=== PATIENT | male | born 1935 | race Caucasian/White ===

== ENCOUNTER 2023-01-09 11:43 | Inpatient (IN) | payer MEDICARE, OTHER ==
[2023-01-09 13:06] LABS: BASOPHILS ABSOLUTE AUTO 0.01 K/mm3 (0.01-0.08); BASOPHILS PERCENT AUTO 0.2 % (0.1-1.2); EOSINOPHILS ABSOLUTE AUTO 0.19 K/mm3 (0.04-0.54); EOSINOPHILS PERCENT AUTO 3.5 (0.8-7.0); HEMOGLOBIN 13.6 gm/dl (13.7-17.5); IMMATURE GRAN ABSOLUTE AUTO 0.01 K/mm3 (0.00-0.10); IMMATURE GRAN PERCENT AUTO 0.2 % (<=1.0); LYMPHOCYTES ABSOLUTE AUTO 2.32 K/mm3 (1.32-3.57); LYMPHOCYTES PERCENT AUTO 43.2 % (21.8-53.1); MEAN CORPUSCULAR HEMOGLOBIN 31.3 pg (25.7-32.2); MEAN CORPUSCULAR HGB CONC 33.2 g/dl (32.2-35.5); MEAN CORPUSCULAR VOLUME 94.5 fl (79.0-92.2); MONOCYTES ABSOLUTE AUTO 0.26 K/mm3 (0.30-0.82); MONOCYTES PERCENT AUTO 4.8 % (5.3-12.2); NEUTROPHILS ABSOLUTE AUTO 2.58 K/mm3 (1.78-5.38); NEUTROPHILS PERCENT AUTO 48.1 % (34.0-67.9); PLATELET COUNT,PLT 67 K/mm3 (163-337); RED BLOOD CELL COUNT 4.34 M/mm3 (4.63-6.08); WHITE BLOOD CELL COUNT,WBC 5.37 K/mm3 (4.23-9.07)
[2023-01-09 13:24] LABS: INR 1.1; PROTHROMBIN TIME 11.7 SECONDS (9.7-12.0)
[2023-01-09 13:26] LABS: PTT,PARTIAL THROMBOPLSTIN TIME 27.1 SECONDS (21.7-31.4)
[2023-01-09 13:40] LABS: A/G RATIO 1.1 (1-2); ALBUMIN 3.8 g/dl (3.4-5.0); ANION GAP 17.9 (5-15); BILIRUBIN TOTAL 1.6 mg/dL (0.2-1.0); BUN/CREATININE RATIO 11.9 (14-18); CALCIUM 9.3 mg/dL (8.5-10.1); CREATININE 3.1 mg/dL (0.7-1.3); EST CRCL DRUG DOSING (CG) 17.88 mL/min; POTASSIUM,K 3.9 mEq/L (3.5-5.1); PROTEIN TOTAL,TP 7.2 g/dl (6.4-8.2)
[2023-01-09 13:58] LABS: SLIDE REVIEW ABNORMAL SMEAR
[2023-01-09] MEDS ORDERED: Lactated Ringers 1,000 ML IV ONE (14:32)
[2023-01-09 15:19] LABS: APPEARANCE,URINE CLEAR (Clear); BILIRUBIN,URINE NEGATIVE (Negative); COLOR,URINE DARK YELLOW (Yellow); GLUCOSE,URINE NEGATIVE (Negative); KETONES,URINE NEGATIVE (Negative); LEUKOCYTE ESTERASE,URINE TRACE (Negative); NITRITE,URINE NEGATIVE (Negative); OCCULT BLOOD,URINE TRACE-INTACT (Negative); PROTEIN,URINE 1+ (Negative)
[2023-01-09 15:32] LABS: AMORPHOUS SEDIMENT,URINE FEW /hpf (NOT SEEN); BACTERIA,URINE MODERATE /hpf (FEW); HYALINE CASTS,URINE 0-5 /lpf (0-5); MUCUS,URINE FEW /hpf (FEW); SQUAMOUS EPITHELIAL CELLS,UR 0-5 /hpf (0-5)
[2023-01-09 16:28] LABS: LACTIC ACID 1.2 mmol/L (0.4-2.0)
[2023-01-09] MEDS ORDERED: oxyCODONE 5 MG Tab PO PRN (16:42)
[2023-01-09] MEDS ORDERED: Acetaminophen 325 MG Tab PO PRN (16:42)
[2023-01-09] MEDS ORDERED: Temazepam 7.5 MG Cap PO PRN (16:42)
[2023-01-09] MEDS ORDERED: Lactated Ringers 1,000 ML IV SCH (16:45)
[2023-01-09] MEDS ORDERED: Heparin Sodium 5,000 Units/ML Vial SUBCUT SCH (16:45)
[2023-01-09] MEDS ORDERED: cefTRIAXone 1 GM in Sodium Chloride 0.9% 100 ML IV ONE (16:59)
[2023-01-09] MEDS: cefTRIAXone 1 GM in Sodium Chloride 0.9% 100 ML IV SCH ×2 (17:07→19:54)
[2023-01-09] MEDS: Rosuvastatin 10 MG Tab PO SCH (20:15)
[2023-01-09] MEDS: Metoprolol Succinate 50 MG Tab.ER PO SCH (20:19)
[2023-01-09] MEDS ORDERED: Sodium Chloride 0.9% 500 ML IV ONE (20:23)
[2023-01-09] MEDS ORDERED: VALSARTAN PO SCH (21:00)
[2023-01-09] MEDS ORDERED: SACUBITRIL PO SCH (21:00)
[2023-01-10 06:21] LABS: BASOPHILS ABSOLUTE AUTO 0.01 K/mm3 (0.01-0.08); BASOPHILS PERCENT AUTO 0.2 % (0.1-1.2); EOSINOPHILS ABSOLUTE AUTO 0.16 K/mm3 (0.04-0.54); EOSINOPHILS PERCENT AUTO 3.9 (0.8-7.0); HEMATOCRIT 35.1 % (40.1-51.0); IMMATURE GRAN ABSOLUTE AUTO 0.01 K/mm3 (0.00-0.10); IMMATURE GRAN PERCENT AUTO 0.2 % (<=1.0); LYMPHOCYTES ABSOLUTE AUTO 1.92 K/mm3 (1.32-3.57); LYMPHOCYTES PERCENT AUTO 46.5 % (21.8-53.1); MEAN CORPUSCULAR HEMOGLOBIN 31.4 pg (25.7-32.2); MEAN CORPUSCULAR VOLUME 94.9 fl (79.0-92.2); MEAN PLATELET VOLUME 10.7 fl (9.4-12.3); MONOCYTES ABSOLUTE AUTO 0.28 K/mm3 (0.30-0.82); MONOCYTES PERCENT AUTO 6.8 % (5.3-12.2); NEUTROPHILS ABSOLUTE AUTO 1.75 K/mm3 (1.78-5.38); NEUTROPHILS PERCENT AUTO 42.4 % (34.0-67.9); PLATELET COUNT,PLT 62 K/mm3 (163-337); WHITE BLOOD CELL COUNT,WBC 4.13 K/mm3 (4.23-9.07)
[2023-01-10 06:26] LABS: HEMOGLOBIN 11.6 gm/dl (13.7-17.5)
[2023-01-10 06:55] LABS: ALBUMIN 2.9 g/dl (3.4-5.0); BILIRUBIN TOTAL 1.2 mg/dL (0.2-1.0); CALCIUM 8.7 mg/dL (8.5-10.1); MAGNESIUM 1.5 mg/dL (1.8-2.4); POTASSIUM,K 3.3 mEq/L (3.5-5.1); PROTEIN TOTAL,TP 5.7 g/dl (6.4-8.2)
[2023-01-10 07:08] LABS: ANION GAP 15.3 (5-15); BUN/CREATININE RATIO 11.8 (14-18); CREATININE 2.8 mg/dL (0.7-1.3); EST CRCL DRUG DOSING (CG) 19.8 mL/min
[2023-01-10] MEDS: Aspirin 81 MG Tab.EC PO SCH (08:52)
[2023-01-10] MEDS: Furosemide 20 MG Tab PO SCH (08:52)
[2023-01-10] MEDS: Tamsulosin 0.4 MG Cap.ER PO SCH (08:53)
[2023-01-10] MEDS: Magnesium Oxide 400 MG Tab PO SCH ×2 (08:54→20:08)
[2023-01-10] MEDS ORDERED: Potassium Chloride 20 MEQ Tab.ER PO ONE (09:00)
[2023-01-10] MEDS ORDERED: Docusate Sodium 100 MG Cap PO ONE (09:36)
[2023-01-10] MEDS: Cyanocobalamin (Vitamin B12) 1,000 MCG Tab PO SCH (09:42)
[2023-01-10 10:42] LABS: SLIDE REVIEW ABNORMAL SMEAR
[2023-01-10] MEDS: cefTRIAXone 1 GM in Sodium Chloride 0.9% 100 ML IV SCH (17:06)
[2023-01-10] MEDS: Metoprolol Succinate 50 MG Tab.ER PO SCH (20:07)
[2023-01-10] MEDS: Trospium 20 MG Tab PO SCH (20:08)
[2023-01-10] MEDS: Rosuvastatin 10 MG Tab PO SCH (20:08)
[2023-01-11 07:05] LABS: EOSINOPHILS ABSOLUTE AUTO 0.16 K/mm3 (0.04-0.54); EOSINOPHILS PERCENT AUTO 3.7 (0.8-7.0); HEMATOCRIT 36.3 % (40.1-51.0); HEMOGLOBIN 12.2 gm/dl (13.7-17.5); IMMATURE GRAN ABSOLUTE AUTO 0.01 K/mm3 (0.00-0.10); IMMATURE GRAN PERCENT AUTO 0.2 % (<=1.0); LYMPHOCYTES ABSOLUTE AUTO 1.46 K/mm3 (1.32-3.57); LYMPHOCYTES PERCENT AUTO 33.6 % (21.8-53.1); MEAN CORPUSCULAR HEMOGLOBIN 31.6 pg (25.7-32.2); MEAN CORPUSCULAR HGB CONC 33.6 g/dl (32.2-35.5); MEAN PLATELET VOLUME 10.4 fl (9.4-12.3); MONOCYTES PERCENT AUTO 4.6 % (5.3-12.2); NEUTROPHILS ABSOLUTE AUTO 2.52 K/mm3 (1.78-5.38); NEUTROPHILS PERCENT AUTO 57.9 % (34.0-67.9); PLATELET COUNT,PLT 65 K/mm3 (163-337); RED BLOOD CELL COUNT 3.86 M/mm3 (4.63-6.08); WHITE BLOOD CELL COUNT,WBC 4.35 K/mm3 (4.23-9.07)
[2023-01-11 07:07] LABS: ALBUMIN 3.1 g/dl (3.4-5.0); ANION GAP 13.3 (5-15); BILIRUBIN TOTAL 1.2 mg/dL (0.2-1.0); BUN/CREATININE RATIO 10.4 (14-18); CALCIUM 9.2 mg/dL (8.5-10.1); CREATININE 2.5 mg/dL (0.7-1.3); EST CRCL DRUG DOSING (CG) 22.17 mL/min; MAGNESIUM 1.6 mg/dL (1.8-2.4); POTASSIUM,K 3.3 mEq/L (3.5-5.1); PROTEIN TOTAL,TP 6.1 g/dl (6.4-8.2)
[2023-01-11] MEDS: Tamsulosin 0.4 MG Cap.ER PO SCH (08:44)
[2023-01-11] MEDS: Cyanocobalamin (Vitamin B12) 1,000 MCG Tab PO SCH (08:44)
[2023-01-11] MEDS: Aspirin 81 MG Tab.EC PO SCH (08:44)
[2023-01-11] MEDS: Magnesium Oxide 400 MG Tab PO SCH ×2 (08:44→20:17)
[2023-01-11] MEDS: Furosemide 20 MG Tab PO SCH (08:45)
[2023-01-11] MEDS ORDERED: Folic Acid 1 MG Tab PO SCH (09:00)
[2023-01-11] MEDS ORDERED: Methotrexate 2.5 MG Tab PO SCH ×2 (09:00)
[2023-01-11] MEDS ORDERED: Potassium Chloride 20 MEQ Tab.ER PO ONE (09:16)
[2023-01-11] MEDS ORDERED: LORazepam 0.5 MG Tab PO ONE (12:00)
[2023-01-11 12:19] LABS: SLIDE REVIEW ABNORMAL SMEAR
[2023-01-11] MEDS: Rosuvastatin 10 MG Tab PO SCH (20:17)
[2023-01-11] MEDS: Metoprolol Succinate 50 MG Tab.ER PO SCH (20:17)
[2023-01-11] MEDS: Trospium 20 MG Tab PO SCH (20:18)
[2023-01-11] MEDS ORDERED: Melatonin 3 MG Tab PO SCH (21:00)
[2023-01-12 05:53] LABS: BASOPHILS ABSOLUTE AUTO 0.01 K/mm3 (0.01-0.08); BASOPHILS PERCENT AUTO 0.2 % (0.1-1.2); EOSINOPHILS PERCENT AUTO 4.9 (0.8-7.0); HEMATOCRIT 33.5 % (40.1-51.0); HEMOGLOBIN 11.1 gm/dl (13.7-17.5); LYMPHOCYTES ABSOLUTE AUTO 1.53 K/mm3 (1.32-3.57); LYMPHOCYTES PERCENT AUTO 37.6 % (21.8-53.1); MEAN CORPUSCULAR HEMOGLOBIN 31.7 pg (25.7-32.2); MEAN CORPUSCULAR HGB CONC 33.1 g/dl (32.2-35.5); MEAN CORPUSCULAR VOLUME 95.7 fl (79.0-92.2); MEAN PLATELET VOLUME 10.4 fl (9.4-12.3); MONOCYTES ABSOLUTE AUTO 0.28 K/mm3 (0.30-0.82); MONOCYTES PERCENT AUTO 6.9 % (5.3-12.2); NEUTROPHILS ABSOLUTE AUTO 2.05 K/mm3 (1.78-5.38); NEUTROPHILS PERCENT AUTO 50.4 % (34.0-67.9); PLATELET COUNT,PLT 56 K/mm3 (163-337); WHITE BLOOD CELL COUNT,WBC 4.07 K/mm3 (4.23-9.07)
[2023-01-12 06:04] LABS: ALBUMIN 2.8 g/dl (3.4-5.0); ANION GAP 12.5 (5-15); BILIRUBIN TOTAL 0.9 mg/dL (0.2-1.0); BUN/CREATININE RATIO 9.6 (14-18); CALCIUM 8.7 mg/dL (8.5-10.1); CREATININE 2.4 mg/dL (0.7-1.3); EST CRCL DRUG DOSING (CG) 23.1 mL/min; POTASSIUM,K 3.5 mEq/L (3.5-5.1); PROTEIN TOTAL,TP 5.6 g/dl (6.4-8.2)
[2023-01-12 08:26] LABS: SLIDE REVIEW ABNORMAL SMEAR
[2023-01-12] MEDS: Furosemide 20 MG Tab PO SCH (08:57)
[2023-01-12] MEDS: Cyanocobalamin (Vitamin B12) 1,000 MCG Tab PO SCH (08:57)
[2023-01-12] MEDS: Tamsulosin 0.4 MG Cap.ER PO SCH (08:57)
[2023-01-12] MEDS: Aspirin 81 MG Tab.EC PO SCH (08:57)
[2023-01-12] MEDS: Magnesium Oxide 400 MG Tab PO SCH (08:57)
[2023-01-12] MEDS ORDERED: Magnesium Hydroxide 400 MG/5 ML Susp 30 ML Cup PO ONE (09:49)
== END 2023-01-12 16:00 | disposition home or self-care (01) | DRG 641 ==
LOC: SUPCPDRO 11:43 → JD.ED 11:43 → JD.MS 16:42
PROVIDERS: ADMIT Internal Medicine; ATTEND Internal Medicine
DX: N39.0 Urinary tract infection, site not specified (principal); E86.0 Dehydration; R29.6 Repeated falls; N18.4 Chronic kidney disease, stage 4 (severe); I13.0 Hypertensive heart and chronic kidney disease with heart failure and stage 1 through stage 4 chronic kidney disease, or unspecified chronic kidney disease; I50.9 Heart failure, unspecified; D69.6 Thrombocytopenia, unspecified; R31.9 Hematuria, unspecified; E87.6 Hypokalemia; Z66 Do not resuscitate; H54.7 Unspecified visual loss; K59.09 Other constipation; N40.0 Benign prostatic hyperplasia without lower urinary tract symptoms; F32.A Depression, unspecified; Z98.890 Other specified postprocedural states; Z79.899 Other long term (current) drug therapy; Z95.0 Presence of cardiac pacemaker; Z90.89 Acquired absence of other organs; Z98.49 Cataract extraction status, unspecified eye; Z79.82 Long term (current) use of aspirin
CPT/HCPCS: 36415; 70450; 71045; 80053; 81001; 82947; 83605; 83880; 84443; 84484; 85025; 85610; 85730; 87040 ×2; 87086; 93005; J7120; 51798; 83735; 93010; 96360; 97116-GP; 97162-GP; 97166-GO; 99222; 99232; 99239; 99285; 99285-25; A9270-GY; J0696; J3490; J7030; J8610

== ENCOUNTER 2023-07-05 13:03 | Inpatient (IN) | payer MEDICARE, OTHER ==
[2023-07-05] MEDS ORDERED: Lactated Ringers 1,000 ML IV SCH ×4 (14:00→22:00)
[2023-07-05 14:39] LABS: BASOPHILS PERCENT AUTO 0.1 % (0.0-1.0); EOSINOPHILS PERCENT AUTO 0.3 % (0.0-6.0); HEMATOCRIT 38.8 % (42.0-52.0); IMMATURE GRAN ABSOLUTE AUTO 0.03 K/mm3 (0.00-0.05); IMMATURE GRAN PERCENT AUTO 0.3 % (0.0-0.4); LYMPHOCYTES ABSOLUTE AUTO 2.8 K/mm3 (1.0-4.8); LYMPHOCYTES PERCENT AUTO 29.4 % (24.0-44.0); MEAN CORPUSCULAR HEMOGLOBIN 32.4 pg (28.0-32.0); MEAN CORPUSCULAR VOLUME 98.2 fl (83.0-99.0); MEAN PLATELET VOLUME 9.6 fl (9.4-12.4); MONOCYTES ABSOLUTE AUTO 0.4 K/mm3 (0.0-0.8); MONOCYTES PERCENT AUTO 4.1 % (0.0-8.0); NEUTROPHILS ABSOLUTE AUTO 6.2 K/mm3 (1.8-7.7); NEUTROPHILS PERCENT AUTO 65.8 % (41.0-71.0); PLATELET COUNT,PLT 132 K/mm3 (150-400); RED BLOOD CELL COUNT 3.95 M/mm3 (4.52-5.90); WHITE BLOOD CELL COUNT,WBC 9.48 K/mm3 (3.9-11.3)
[2023-07-05 14:43] LABS: HEMOGLOBIN 12.8 gm/dl (14.0-18.0)
[2023-07-05 14:58] LABS: INR 1.08; PROTHROMBIN TIME 11.5 SECONDS (9.7-12.0)
[2023-07-05 14:59] LABS: PTT,PARTIAL THROMBOPLSTIN TIME 25.8 SECONDS (21.7-31.4)
[2023-07-05 15:10] LABS: A/G RATIO 0.8 (1-2); ALANINE AMINOTRANSFERASE,ALT 14 U/L (16-63); ALBUMIN 3.8 g/dl (3.4-5.0); ALKALINE PHOSPHATASE 84 U/L (46-116); ANION GAP 19.9 (5-15); ASPARTATE AMNIOTRANSFERASE,AST 17 U/L (15-37); BILIRUBIN TOTAL 0.6 mg/dL (0.2-1.0); BLOOD UREA NITROGEN,BUN 46 mg/dL (7-18); BUN/CREATININE RATIO 15.3 (14-18); C-REACTIVE PROTEIN <0.2 mg/dL (<1.0); CALCIUM 10.1 mg/dL (8.5-10.1); CARBON DIOXIDE,CO2 21 mEq/L (21-32); CHLORIDE,CL 101 mEq/L (98-107); EST CRCL DRUG DOSING (CG) 18.13 mL/min; ESTIMATED GFR 19 mL/min (>60); GLUCOSE RANDOM 121 mg/dL (70-99); POTASSIUM,K 3.9 mEq/L (3.5-5.1); PROTEIN TOTAL,TP 8.6 g/dl (6.4-8.2); SODIUM,NA 138 mEq/L (136-145); TROPONIN I HIGH SENSITIVITY 42 pg/mL (<=76)
[2023-07-05 15:24] LABS: CORONAVIRUS COVID-19 NAA NEGATIVE (NEGATIVE); INFLUENZA A NAA NEGATIVE (NEGATIVE); RESPIRATORY SYNCYTIAL VIR NAA NEGATIVE (NEGATIVE)
[2023-07-05 15:53] LABS: LACTIC ACID 2.5 mmol/L (0.4-2.0)
[2023-07-05 16:50] LABS: APPEARANCE,URINE CLEAR (Clear); BILIRUBIN,URINE NEGATIVE (Negative); COLOR,URINE YELLOW (Yellow); GLUCOSE,URINE TRACE (Negative); KETONES,URINE NEGATIVE (Negative); LEUKOCYTE ESTERASE,URINE 1+ (Negative); NITRITE,URINE NEGATIVE (Negative); OCCULT BLOOD,URINE 1+ (Negative); PROTEIN,URINE NEGATIVE (Negative); UROBILINOGEN,URINE 0.2 (0.2-1.0)
[2023-07-05 16:57] LABS: BACTERIA,URINE FEW /hpf (FEW); MUCUS,URINE FEW /hpf (FEW); RBC,URINE 0-5 /hpf (0-5); SQUAMOUS EPITHELIAL CELLS,UR 0-5 /hpf (0-5); WBC,URINE 0-5 /hpf (0-5)
[2023-07-06] MEDS: Acetaminophen 325 MG Tab PO PRN ×2 (04:24→20:02)
[2023-07-06 06:43] LABS: ANION GAP 13.5 (5-15); BUN/CREATININE RATIO 18.2 (14-18); CALCIUM 9.2 mg/dL (8.5-10.1); CREATININE 2.2 mg/dL (0.7-1.3); EST CRCL DRUG DOSING (CG) 24.72 mL/min; POTASSIUM,K 3.5 mEq/L (3.5-5.1)
[2023-07-06] MEDS: Heparin Sodium 5,000 Units/ML Vial SUBCUT SCH ×3 (07:04→22:15)
[2023-07-06] MEDS ORDERED: Rosuvastatin 10 MG Tab PO SCH ×2 (21:00)
[2023-07-06] MEDS ORDERED: Tamsulosin 0.4 MG Cap.ER PO SCH (21:00)
[2023-07-06] MEDS ORDERED: Trospium 20 MG Tab PO SCH (21:00)
[2023-07-07 06:46] LABS: ANION GAP 11.7 (5-15); BUN/CREATININE RATIO 17.9 (14-18); CALCIUM 9.2 mg/dL (8.5-10.1); CREATININE 1.9 mg/dL (0.7-1.3); EST CRCL DRUG DOSING (CG) 28.62 mL/min; POTASSIUM,K 3.7 mEq/L (3.5-5.1)
[2023-07-07] MEDS: Heparin Sodium 5,000 Units/ML Vial SUBCUT SCH (06:52)
[2023-07-07] MEDS ORDERED: SULFASALAZINE 500 MG PO SCH (09:00)
[2023-07-07] MEDS ORDERED: Furosemide 40 MG Tab PO SCH (09:00)
[2023-07-07] MEDS ORDERED: Metoprolol Succinate 50 MG Tab.ER PO SCH (09:00)
[2023-07-07] MEDS ORDERED: Aspirin 81 MG Tab.EC PO SCH (09:00)
[2023-07-07] MEDS ORDERED: Tamsulosin 0.4 MG Cap.ER PO SCH (09:00)
[2023-07-07] MEDS ORDERED: Magnesium Oxide 400 MG Tab PO SCH (09:00)
[2023-07-07] MEDS ORDERED: FLU (Fluad Quad) 2023-24(65UP)/MF59C/PF 60 MCG/0.5 ML Syringe IM ONE (11:55)
[2023-07-12] MEDS ORDERED: Methotrexate 2.5 MG Tab PO SCH (09:00)
== END 2023-07-07 13:15 | disposition home or self-care (01) | DRG 394 ==
LOC: JD.ED 13:03 → JD.MS 19:40
PROVIDERS: ADMIT Internal Medicine; ATTEND Internal Medicine
DX: K52.1 Toxic gastroenteritis and colitis (principal); E87.20 Acidosis, unspecified; I13.0 Hypertensive heart and chronic kidney disease with heart failure and stage 1 through stage 4 chronic kidney disease, or unspecified chronic kidney disease; N17.9 Acute kidney failure, unspecified; N18.4 Chronic kidney disease, stage 4 (severe); R64 Cachexia; Z66 Do not resuscitate; I25.10 Atherosclerotic heart disease of native coronary artery without angina pectoris; E78.5 Hyperlipidemia, unspecified; I50.9 Heart failure, unspecified; I48.91 Unspecified atrial fibrillation; E86.1 Hypovolemia; T36.95XA Adverse effect of unspecified systemic antibiotic, initial encounter; M05.79 Rheumatoid arthritis with rheumatoid factor of multiple sites without organ or systems involvement; H91.90 Unspecified hearing loss, unspecified ear; K59.09 Other constipation; E86.0 Dehydration; G89.29 Other chronic pain; M54.9 Dorsalgia, unspecified; F32.A Depression, unspecified; N40.0 Benign prostatic hyperplasia without lower urinary tract symptoms; Z95.0 Presence of cardiac pacemaker; Z79.82 Long term (current) use of aspirin; Z79.899 Other long term (current) drug therapy; Z98.890 Other specified postprocedural states; Z98.49 Cataract extraction status, unspecified eye; Z11.52 Encounter for screening for COVID-19; Z68.23 Body mass index [BMI] 23.0-23.9, adult
CPT/HCPCS: 0241U; 36415; 70450; 70450-26; 71045; 71045-26; 73030-26-RT; 73030-RT; 80048; 80053; 81001; 83605; 83880; 84484; 85025; 85610; 85652; 85730; 86140; 87040; 90694; 93005; 97161-GP; A9270-GY; G0008; J1644; J7120

== ENCOUNTER 2024-05-14 10:50 | Inpatient (IN) | payer MEDICARE, OTHER ==
[2024-05-14 11:58] LABS: BASOPHILS PERCENT AUTO 0.2 % (0.0-1.0); EOSINOPHILS PERCENT AUTO 0.1 % (0.0-6.0); HEMATOCRIT 40.8 % (42.0-52.0); HEMOGLOBIN 13.4 gm/dl (14.0-18.0); IMMATURE GRAN ABSOLUTE AUTO 0.03 K/mm3 (0.00-0.05); IMMATURE GRAN PERCENT AUTO 0.2 % (0.0-0.4); LYMPHOCYTES ABSOLUTE AUTO 3.9 K/mm3 (1.0-4.8); LYMPHOCYTES PERCENT AUTO 30.6 % (24.0-44.0); MEAN CORPUSCULAR HEMOGLOBIN 32.1 pg (28.0-32.0); MEAN CORPUSCULAR HGB CONC 32.8 g/dl (32.0-36.0); MEAN CORPUSCULAR VOLUME 97.6 fl (83.0-99.0); MEAN PLATELET VOLUME 10.4 fl (9.4-12.4); MONOCYTES ABSOLUTE AUTO 0.7 K/mm3 (0.0-0.8); MONOCYTES PERCENT AUTO 5.5 % (0.0-8.0); NEUTROPHILS ABSOLUTE AUTO 8.1 K/mm3 (1.8-7.7); NEUTROPHILS PERCENT AUTO 63.4 % (41.0-71.0); PLATELET COUNT,PLT 115 K/mm3 (150-400); RED BLOOD CELL COUNT 4.18 M/mm3 (4.52-5.90); WHITE BLOOD CELL COUNT,WBC 12.79 K/mm3 (3.9-11.3)
[2024-05-14] MEDS: Sodium Chloride 0.9% 1,000 ML IV SCH (12:11)
[2024-05-14 12:27] LABS: LACTIC ACID 2.1 mmol/L (0.4-2.0)
[2024-05-14 12:34] LABS: A/G RATIO 0.8 (1-2); ANION GAP 16.2 (5-15); BILIRUBIN TOTAL 0.7 mg/dL (0.2-1.0); BUN/CREATININE RATIO 15.7 (14-18); C-REACTIVE PROTEIN 8.99 mg/dL (<0.30); CALCIUM 9.4 mg/dL (8.5-10.1); CREATININE 2.1 mg/dL (0.7-1.3); EST CRCL DRUG DOSING (CG) 25.9 mL/min; MAGNESIUM 1.9 mg/dL (1.8-2.4); POTASSIUM,K 3.2 mEq/L (3.5-5.1); PROTEIN TOTAL,TP 6.9 g/dl (6.4-8.2)
[2024-05-14 13:00] LABS: CORONAVIRUS COVID-19 NAA NEGATIVE (NEGATIVE); INFLUENZA A NAA NEGATIVE (NEGATIVE); RESPIRATORY SYNCYTIAL VIR NAA NEGATIVE (NEGATIVE)
[2024-05-14 13:26] LABS: APPEARANCE,URINE SLT CLOUDY (Clear); BILIRUBIN,URINE 1+ (Negative); COLOR,URINE DARK YELLOW (Yellow); GLUCOSE,URINE NEGATIVE (Negative); KETONES,URINE NEGATIVE (Negative); LEUKOCYTE ESTERASE,URINE 1+ (Negative); NITRITE,URINE NEGATIVE (Negative); OCCULT BLOOD,URINE 2+ (Negative); PH,URINE 5.5 (5.0-8.0); PROTEIN,URINE 2+ (Negative); UROBILINOGEN,URINE 0.2 (0.2-1.0)
[2024-05-14] MEDS: Potassium Chloride 10 MEQ in Premix Bag 1 BAG IV SCH (13:37)
[2024-05-14 13:43] LABS: BACTERIA,URINE MODERATE /hpf (FEW); MUCUS,URINE MODERATE /hpf (FEW); RBC,URINE 20-30 /hpf (0-5)
[2024-05-14] MEDS: cefTRIAXone 2 GM in Sodium Chloride 0.9% 100 ML IV ONE (14:25)
[2024-05-14] MEDS ORDERED: Sennosides/Docusate Sodium 50-8.6 MG Tab PO PRN (14:42)
[2024-05-14] MEDS ORDERED: Melatonin 3 MG Tab PO PRN (14:42)
[2024-05-14] MEDS ORDERED: Ondansetron 4 MG/2 ML SDV IV PRN (14:42)
[2024-05-14] MEDS ORDERED: oxyCODONE 5 MG Tab PO PRN (14:42)
[2024-05-14] MEDS ORDERED: Sodium Chloride 0.9% 10 ML Syringe FLUSH PRN (15:03)
[2024-05-14] MEDS ORDERED: Glucagon,Human Recombinant 1 MG Vial IM PRN (15:18)
[2024-05-14] MEDS: Iopamidol 612 MG/ML 100 ML Bottle IVPUSH ONE (15:23)
[2024-05-14] MEDS: Lactated Ringers 1,000 ML IV SCH (16:29)
[2024-05-14] MEDS: Potassium Chloride 20 MEQ Tab.ER PO ONE (16:30)
[2024-05-14] MEDS: Insulin Lispro 100 Unit/ML 3 ML KwikPen SUBCUT SCH (16:33)
[2024-05-14] MEDS: Lactated Ringers 500 ML IV ONE (19:05)
[2024-05-14] MEDS: Rosuvastatin 10 MG Tab PO SCH (20:01)
[2024-05-14] MEDS: Tamsulosin 0.4 MG Cap.ER PO SCH (20:02)
[2024-05-14] MEDS: Trospium 20 MG Tab PO SCH (20:02)
[2024-05-14] MEDS: Loperamide 2 MG Cap PO PRN (22:23)
[2024-05-15 06:47] LABS: BASOPHILS PERCENT AUTO 0.1 % (0.0-1.0); EOSINOPHILS ABSOLUTE AUTO 0.1 K/mm3 (0.0-0.4); EOSINOPHILS PERCENT AUTO 1.4 % (0.0-6.0); HEMATOCRIT 35.7 % (42.0-52.0); IMMATURE GRAN ABSOLUTE AUTO 0.02 K/mm3 (0.00-0.05); IMMATURE GRAN PERCENT AUTO 0.3 % (0.0-0.4); LYMPHOCYTES ABSOLUTE AUTO 3.4 K/mm3 (1.0-4.8); LYMPHOCYTES PERCENT AUTO 43.5 % (24.0-44.0); MEAN CORPUSCULAR HEMOGLOBIN 32.8 pg (28.0-32.0); MEAN CORPUSCULAR HGB CONC 33.3 g/dl (32.0-36.0); MEAN CORPUSCULAR VOLUME 98.3 fl (83.0-99.0); MEAN PLATELET VOLUME 9.9 fl (9.4-12.4); MONOCYTES ABSOLUTE AUTO 0.4 K/mm3 (0.0-0.8); MONOCYTES PERCENT AUTO 5.1 % (0.0-8.0); NEUTROPHILS ABSOLUTE AUTO 3.9 K/mm3 (1.8-7.7); NEUTROPHILS PERCENT AUTO 49.6 % (41.0-71.0); PLATELET COUNT,PLT 103 K/mm3 (150-400); RED BLOOD CELL COUNT 3.63 M/mm3 (4.52-5.90); WHITE BLOOD CELL COUNT,WBC 7.82 K/mm3 (3.9-11.3)
[2024-05-15 06:53] LABS: HEMOGLOBIN 11.9 gm/dl (14.0-18.0)
[2024-05-15 07:33] LABS: HEMOGLOBIN A1C 5.7 %
[2024-05-15 07:34] LABS: A/G RATIO 0.7 (1-2); ALANINE AMINOTRANSFERASE,ALT < 6 U/L (16-63); ALBUMIN 2.5 g/dl (3.4-5.0); ALKALINE PHOSPHATASE 58 U/L (46-116); ANION GAP 14.5 (5-15); ASPARTATE AMNIOTRANSFERASE,AST 15 U/L (15-37); BILIRUBIN TOTAL 0.4 mg/dL (0.2-1.0); BLOOD UREA NITROGEN,BUN 29 mg/dL (7-18); BUN/CREATININE RATIO 17.1 (14-18); C-REACTIVE PROTEIN 6.42 mg/dL (<0.30); CALCIUM 8.9 mg/dL (8.5-10.1); CARBON DIOXIDE,CO2 22 mEq/L (21-32); CHLORIDE,CL 108 mEq/L (98-107); CREATININE 1.7 mg/dL (0.7-1.3); EST CRCL DRUG DOSING (CG) 31.99 mL/min; ESTIMATED GFR 38 mL/min (>60); GLUCOSE RANDOM 89 mg/dL (70-99); PHOSPHORUS 2.4 mg/dL (2.6-4.7); POTASSIUM,K 3.5 mEq/L (3.5-5.1); PROTEIN TOTAL,TP 5.9 g/dl (6.4-8.2); SODIUM,NA 141 mEq/L (136-145)
[2024-05-15] MEDS ORDERED: Enoxaparin 30 MG/0.3 ML Syringe SUBCUT SCH (09:00)
[2024-05-15] MEDS: Cholecalciferol (Vitamin D3) 25 MCG Tab PO SCH (09:07)
[2024-05-15] MEDS: Aspirin 81 MG Tab.EC PO SCH (09:07)
[2024-05-15] MEDS: Enoxaparin 40 MG/0.4 ML Syringe SUBCUT SCH (09:07)
[2024-05-15] MEDS: Trospium 20 MG Tab PO SCH (09:07)
[2024-05-15] MEDS: Metoprolol Succinate 25 MG Tab.ER PO SCH (09:08)
[2024-05-15] MEDS: Cyanocobalamin (Vitamin B12) 1,000 MCG Tab PO SCH (09:08)
[2024-05-15] MEDS: Phosphorus #1 250 MG Tab PO ONE (11:07)
[2024-05-15] MEDS: Potassium Chloride 20 MEQ Tab.ER PO ONE (11:08)
[2024-05-15] MEDS: cefTRIAXone 2 GM in Sodium Chloride 0.9% 100 ML IV SCH (15:00)
[2024-05-15] MEDS: Folic Acid 1 MG Tab PO SCH (16:22)
[2024-05-15] MEDS: Lactated Ringers 500 ML IV ONE (18:03)
[2024-05-15] MEDS: Polyethylene Glycol/Electrolytes 4,000 ML Bottle PO ONE (18:27)
[2024-05-16 04:44] LABS: HEMATOCRIT 35.2 % (42.0-52.0); HEMOGLOBIN 11.7 gm/dl (14.0-18.0); MEAN CORPUSCULAR HEMOGLOBIN 31.9 pg (28.0-32.0); MEAN CORPUSCULAR HGB CONC 33.2 g/dl (32.0-36.0); MEAN CORPUSCULAR VOLUME 95.9 fl (83.0-99.0); MEAN PLATELET VOLUME 10.1 fl (9.4-12.4); PLATELET COUNT,PLT 92 K/mm3 (150-400); RED BLOOD CELL COUNT 3.67 M/mm3 (4.52-5.90); WHITE BLOOD CELL COUNT,WBC 6.94 K/mm3 (3.9-11.3)
[2024-05-16 06:45] LABS: ANION GAP 12.9 (5-15); BUN/CREATININE RATIO 16.4 (14-18); CALCIUM 8.5 mg/dL (8.5-10.1); CREATININE 1.4 mg/dL (0.7-1.3); EST CRCL DRUG DOSING (CG) 38.85 mL/min; MAGNESIUM 1.8 mg/dL (1.8-2.4); PHOSPHORUS 2.4 mg/dL (2.6-4.7); POTASSIUM,K 3.9 mEq/L (3.5-5.1)
[2024-05-16] MEDS: Magnesium Sulfate/Water Premix 2 GM/50 ML BAG IV ONE (08:03)
[2024-05-16] MEDS: Mineral Oil 30 ML UD Cup PO ONE (08:07)
[2024-05-16] MEDS: Potassium Phosphates 30 MMOLE in Sodium Chloride 0.9% 500 ML IV SCH (10:24)
[2024-05-17 06:17] LABS: HEMATOCRIT 35.1 % (42.0-52.0); HEMOGLOBIN 11.8 gm/dl (14.0-18.0); MEAN CORPUSCULAR HEMOGLOBIN 32.4 pg (28.0-32.0); MEAN CORPUSCULAR HGB CONC 33.6 g/dl (32.0-36.0); MEAN CORPUSCULAR VOLUME 96.4 fl (83.0-99.0); MEAN PLATELET VOLUME 9.5 fl (9.4-12.4); PLATELET COUNT,PLT 100 K/mm3 (150-400); RED BLOOD CELL COUNT 3.64 M/mm3 (4.52-5.90); WHITE BLOOD CELL COUNT,WBC 6.49 K/mm3 (3.9-11.3)
[2024-05-17 06:36] LABS: ANION GAP 13.1 (5-15); BUN/CREATININE RATIO 12.5 (14-18); CALCIUM 8.4 mg/dL (8.5-10.1); CREATININE 1.2 mg/dL (0.7-1.3); EST CRCL DRUG DOSING (CG) 45.32 mL/min; PHOSPHORUS 2.9 mg/dL (2.6-4.7); POTASSIUM,K 4.1 mEq/L (3.5-5.1)
[2024-05-17] MEDS: Phosphorus #1 250 MG Tab PO ONE (11:02)
[2024-05-17] MEDS ORDERED: Mineral Oil 30 ML UD Cup PO ONE (14:49)
[2024-05-17] MEDS: Lactulose Soln 10 GM/15 ML 30 ML UD Cup PO SCH (16:05)
[2024-05-18] MEDS: Acetaminophen 325 MG Tab PO PRN (05:41)
[2024-05-18 06:00] LABS: ANION GAP 11.3 (5-15); BUN/CREATININE RATIO 9.1 (14-18); CALCIUM 8.1 mg/dL (8.5-10.1); CREATININE 1.1 mg/dL (0.7-1.3); EST CRCL DRUG DOSING (CG) 49.44 mL/min; PHOSPHORUS 2.9 mg/dL (2.6-4.7); POTASSIUM,K 4.3 mEq/L (3.5-5.1)
[2024-05-18] MEDS: Phosphorus #1 250 MG Tab PO ONE (10:17)
== END 2024-05-20 12:48 | DRG 698 ==
LOC: JD.ED 10:50 → JD.MS 14:42
PROVIDERS: ADMIT Student in an Organized Health Care Education/Training Program; ATTEND Student in an Organized Health Care Education/Training Program
DX: T83.510A Infection and inflammatory reaction due to cystostomy catheter, initial encounter (principal); A41.9 Sepsis, unspecified organism; G93.41 Metabolic encephalopathy; R19.7 Diarrhea, unspecified; R65.20 Severe sepsis without septic shock; I13.0 Hypertensive heart and chronic kidney disease with heart failure and stage 1 through stage 4 chronic kidney disease, or unspecified chronic kidney disease; I12.9 Hypertensive chronic kidney disease with stage 1 through stage 4 chronic kidney disease, or unspecified chronic kidney disease; N17.9 Acute kidney failure, unspecified; N39.0 Urinary tract infection, site not specified; Z79.2 Long term (current) use of antibiotics; Z66 Do not resuscitate; K52.9 Noninfective gastroenteritis and colitis, unspecified; E86.0 Dehydration; I25.10 Atherosclerotic heart disease of native coronary artery without angina pectoris; E11.9 Type 2 diabetes mellitus without complications; M06.9 Rheumatoid arthritis, unspecified; H91.90 Unspecified hearing loss, unspecified ear; H54.7 Unspecified visual loss; I50.9 Heart failure, unspecified; N18.9 Chronic kidney disease, unspecified; G89.29 Other chronic pain; M54.9 Dorsalgia, unspecified; F32.A Depression, unspecified; N40.0 Benign prostatic hyperplasia without lower urinary tract symptoms; K59.09 Other constipation; E87.6 Hypokalemia; N31.9 Neuromuscular dysfunction of bladder, unspecified; E83.39 Other disorders of phosphorus metabolism; Z95.5 Presence of coronary angioplasty implant and graft; Z95.0 Presence of cardiac pacemaker; Z79.82 Long term (current) use of aspirin; Z98.49 Cataract extraction status, unspecified eye; Z90.49 Acquired absence of other specified parts of digestive tract; Z98.890 Other specified postprocedural states; Z79.899 Other long term (current) drug therapy; Y73.8 Miscellaneous gastroenterology and urology devices associated with adverse incidents, not elsewhere classified
CPT/HCPCS: 0241U; 36415; 51702; 71045; 74019; 74177; 80048; 80053; 81001; 82947; 83036; 83605; 83735; 83880; 84100; 85025; 85027; 86140; 87040; 87045; 87046; 87086; 87328; 87329; 87493; 87899; 94760; 94761; 96361; 96365; 96368; 97110; 97116; 97161; 97530; 99285; 99223; 99232; 99233; 99239; A9270-GY; J0696; J1650; J3475; J3480; J3490; J7030; J7040; J7120; Q9967; U0002

== ENCOUNTER 2024-07-05 11:09 | Inpatient (IN) | payer MEDICARE, OTHER ==
[2024-07-05] MEDS ORDERED: Sodium Chloride 0.9% 10 ML Syringe FLUSH PRN (11:50)
[2024-07-05] MEDS: Sodium Chloride 0.9% 1,000 ML IV STA (12:18)
[2024-07-05 14:07] LABS: EOSINOPHILS PERCENT AUTO 0.7 % (0.0-6.0); HEMATOCRIT 37.5 % (42.0-52.0); HEMOGLOBIN 12.3 gm/dl (14.0-18.0); IMMATURE GRAN ABSOLUTE AUTO 0.02 K/mm3 (0.00-0.05); IMMATURE GRAN PERCENT AUTO 0.5 % (0.0-0.4); LYMPHOCYTES ABSOLUTE AUTO 2.3 K/mm3 (1.0-4.8); MEAN CORPUSCULAR HEMOGLOBIN 31.6 pg (28.0-32.0); MEAN CORPUSCULAR HGB CONC 32.8 g/dl (32.0-36.0); MEAN CORPUSCULAR VOLUME 96.4 fl (83.0-99.0); MONOCYTES ABSOLUTE AUTO 0.1 K/mm3 (0.0-0.8); NEUTROPHILS ABSOLUTE AUTO 1.7 K/mm3 (1.8-7.7); NEUTROPHILS PERCENT AUTO 41.8 % (41.0-71.0); PLATELET COUNT,PLT 45 K/mm3 (150-400); RED BLOOD CELL COUNT 3.89 M/mm3 (4.52-5.90); WHITE BLOOD CELL COUNT,WBC 4.09 K/mm3 (3.9-11.3)
[2024-07-05 14:30] LABS: A/G RATIO 0.7 (1-2); ANION GAP 12.6 (5-15); BUN/CREATININE RATIO 25.3 (14-18); C-REACTIVE PROTEIN 11.66 mg/dL (<0.30); CALCIUM 9.3 mg/dL (8.5-10.1); CREATININE 1.5 mg/dL (0.7-1.3); EST CRCL DRUG DOSING (CG) 36.64 mL/min; POTASSIUM,K 3.6 mEq/L (3.5-5.1); PROTEIN TOTAL,TP 7.2 g/dl (6.4-8.2)
[2024-07-05] MEDS: Sodium Chloride 0.9% 10 ML Syringe FLUSH ONE (15:16)
[2024-07-05] MEDS: Iopamidol 612 MG/ML 100 ML Bottle IVPUSH ONE (15:16)
[2024-07-05] MEDS: valACYclovir 1,000 MG Tab PO ONE (17:56)
[2024-07-05 18:07] LABS: LACTIC ACID 1.4 mmol/L (0.4-2.0)
[2024-07-05] MEDS: cefTRIAXone 1 GM in Sodium Chloride 0.9% 50 ML IV SCH (18:53)
[2024-07-05] MEDS: VANCOmycin 1.5 GM/300 ML 1.5 GM in Premix Bag 1 BAG IV ONE (18:59)
[2024-07-05 20:00] LABS: APPEARANCE,URINE SLT CLOUDY (Clear); BILIRUBIN,URINE NEGATIVE (Negative); COLOR,URINE YELLOW (Yellow); GLUCOSE,URINE NEGATIVE (Negative); KETONES,URINE 1+ (Negative); LEUKOCYTE ESTERASE,URINE 1+ (Negative); NITRITE,URINE NEGATIVE (Negative); OCCULT BLOOD,URINE 3+ (Negative); PROTEIN,URINE 2+ (Negative); UROBILINOGEN,URINE 0.2 (0.2-1.0)
[2024-07-05] MEDS ORDERED: Ampicillin 2 GM in Sodium Chloride 0.9% 100 ML IV SCH (20:00)
[2024-07-05 20:13] LABS: RBC,URINE 20-30 /hpf (0-5)
[2024-07-05 20:14] LABS: AMORPHOUS SEDIMENT,URINE MODERATE /hpf (NOT SEEN); BACTERIA,URINE MODERATE /hpf (FEW); EPITHELIAL CELLS,URINE 0-5 /hpf (0-5); MUCUS,URINE RARE /hpf (FEW)
[2024-07-05] MEDS: cefTRIAXone 1 GM Vial IVPUSH SCH (21:14)
[2024-07-05] MEDS: Rosuvastatin 10 MG Tab PO SCH (21:16)
[2024-07-05] MEDS: Sodium Chloride 0.9% 1,000 ML IV SCH (21:16)
[2024-07-06 05:30] LABS: EOSINOPHILS ABSOLUTE AUTO 0.1 K/mm3 (0.0-0.4); EOSINOPHILS PERCENT AUTO 2.6 % (0.0-6.0); HEMATOCRIT 36.4 % (42.0-52.0); HEMOGLOBIN 11.8 gm/dl (14.0-18.0); LYMPHOCYTES ABSOLUTE AUTO 2.3 K/mm3 (1.0-4.8); LYMPHOCYTES PERCENT AUTO 59.1 % (24.0-44.0); MEAN CORPUSCULAR HEMOGLOBIN 31.5 pg (28.0-32.0); MEAN CORPUSCULAR HGB CONC 32.4 g/dl (32.0-36.0); MEAN CORPUSCULAR VOLUME 97.1 fl (83.0-99.0); MEAN PLATELET VOLUME 10.8 fl (9.4-12.4); MONOCYTES ABSOLUTE AUTO 0.1 K/mm3 (0.0-0.8); NEUTROPHILS ABSOLUTE AUTO 1.4 K/mm3 (1.8-7.7); NEUTROPHILS PERCENT AUTO 36.3 % (41.0-71.0); PLATELET COUNT,PLT 31 K/mm3 (150-400); RED BLOOD CELL COUNT 3.75 M/mm3 (4.52-5.90); WHITE BLOOD CELL COUNT,WBC 3.91 K/mm3 (3.9-11.3)
[2024-07-06 05:38] LABS: A/G RATIO 0.7 (1-2); ALBUMIN 2.5 g/dl (3.4-5.0); ALKALINE PHOSPHATASE 62 U/L (46-116); ANION GAP 13.4 (5-15); ASPARTATE AMNIOTRANSFERASE,AST 11 U/L (15-37); BLOOD UREA NITROGEN,BUN 33 mg/dL (7-18); BUN/CREATININE RATIO 25.4 (14-18); C-REACTIVE PROTEIN 10.99 mg/dL (<0.30); CALCIUM 8.6 mg/dL (8.5-10.1); CARBON DIOXIDE,CO2 22 mEq/L (21-32); CHLORIDE,CL 109 mEq/L (98-107); CREATININE 1.3 mg/dL (0.7-1.3); EST CRCL DRUG DOSING (CG) 41.03 mL/min; ESTIMATED GFR 53 mL/min (>60); GLUCOSE RANDOM 95 mg/dL (70-99); POTASSIUM,K 3.4 mEq/L (3.5-5.1); PROTEIN TOTAL,TP 6.3 g/dl (6.4-8.2); SODIUM,NA 141 mEq/L (136-145)
[2024-07-06 05:48] LABS: ALANINE AMINOTRANSFERASE,ALT < 6 U/L (16-63)
[2024-07-06 06:15] LABS: SLIDE REVIEW ABNORMAL SMEAR
[2024-07-06] MEDS: Metoprolol Succinate 25 MG Tab.ER PO SCH (09:42)
[2024-07-06] MEDS: Aspirin 81 MG Tab.EC PO SCH (09:42)
[2024-07-06] MEDS: Tamsulosin 0.4 MG Cap.ER PO SCH (09:42)
[2024-07-06] MEDS: VANCOmycin 1 GM in Sodium Chloride 0.9% 250 ML IV SCH (18:01)
[2024-07-06] MEDS: Trospium 20 MG Tab PO SCH (22:37)
[2024-07-06] MEDS: Acetaminophen 325 MG Tab PO PRN (22:44)
[2024-07-07 05:46] LABS: BASOPHILS PERCENT AUTO 0.3 % (0.0-1.0); EOSINOPHILS ABSOLUTE AUTO 0.1 K/mm3 (0.0-0.4); EOSINOPHILS PERCENT AUTO 3.8 % (0.0-6.0); HEMATOCRIT 33.1 % (42.0-52.0); HEMOGLOBIN 10.9 gm/dl (14.0-18.0); IMMATURE GRAN ABSOLUTE AUTO 0.01 K/mm3 (0.00-0.05); IMMATURE GRAN PERCENT AUTO 0.3 % (0.0-0.4); LYMPHOCYTES ABSOLUTE AUTO 1.9 K/mm3 (1.0-4.8); LYMPHOCYTES PERCENT AUTO 54.8 % (24.0-44.0); MEAN CORPUSCULAR HEMOGLOBIN 31.9 pg (28.0-32.0); MEAN CORPUSCULAR HGB CONC 32.9 g/dl (32.0-36.0); MEAN CORPUSCULAR VOLUME 96.8 fl (83.0-99.0); MONOCYTES ABSOLUTE AUTO 0.3 K/mm3 (0.0-0.8); MONOCYTES PERCENT AUTO 9.7 % (0.0-8.0); NEUTROPHILS ABSOLUTE AUTO 1.1 K/mm3 (1.8-7.7); NEUTROPHILS PERCENT AUTO 31.1 % (41.0-71.0); RED BLOOD CELL COUNT 3.42 M/mm3 (4.52-5.90); WHITE BLOOD CELL COUNT,WBC 3.41 K/mm3 (3.9-11.3)
[2024-07-07 05:50] LABS: PLATELET COUNT,PLT 20 K/mm3 (150-400)
[2024-07-07 06:01] LABS: A/G RATIO 0.7 (1-2); ALBUMIN 2.2 g/dl (3.4-5.0); ANION GAP 13.3 (5-15); BILIRUBIN TOTAL 0.8 mg/dL (0.2-1.0); BUN/CREATININE RATIO 19.2 (14-18); C-REACTIVE PROTEIN 10.49 mg/dL (<0.30); CALCIUM 8.2 mg/dL (8.5-10.1); CREATININE 1.2 mg/dL (0.7-1.3); EST CRCL DRUG DOSING (CG) 44.45 mL/min; POTASSIUM,K 3.3 mEq/L (3.5-5.1); PROTEIN TOTAL,TP 5.4 g/dl (6.4-8.2)
[2024-07-07 06:21] LABS: SLIDE REVIEW ABNORMAL SMEAR
[2024-07-07] MEDS: Potassium Chloride 20 MEQ Tab.ER PO ONE (08:37)
[2024-07-08 05:50] LABS: BASOPHILS PERCENT AUTO 0.3 % (0.0-1.0); EOSINOPHILS ABSOLUTE AUTO 0.1 K/mm3 (0.0-0.4); EOSINOPHILS PERCENT AUTO 3.7 % (0.0-6.0); HEMOGLOBIN 11.2 gm/dl (14.0-18.0); LYMPHOCYTES ABSOLUTE AUTO 2.1 K/mm3 (1.0-4.8); LYMPHOCYTES PERCENT AUTO 57.2 % (24.0-44.0); MEAN CORPUSCULAR HEMOGLOBIN 31.2 pg (28.0-32.0); MEAN CORPUSCULAR VOLUME 97.5 fl (83.0-99.0); MEAN PLATELET VOLUME 12.7 fl (9.4-12.4); MONOCYTES ABSOLUTE AUTO 0.4 K/mm3 (0.0-0.8); MONOCYTES PERCENT AUTO 10.7 % (0.0-8.0); NEUTROPHILS ABSOLUTE AUTO 1.1 K/mm3 (1.8-7.7); NEUTROPHILS PERCENT AUTO 28.1 % (41.0-71.0); RED BLOOD CELL COUNT 3.59 M/mm3 (4.52-5.90); WHITE BLOOD CELL COUNT,WBC 3.74 K/mm3 (3.9-11.3)
[2024-07-08] MEDS ORDERED: Diphenhydramine/Lidocaine/MagAl/Simethicone 119 ML Bottle PO PRN (06:07)
[2024-07-08 06:08] LABS: A/G RATIO 0.7 (1-2); ALBUMIN 2.3 g/dl (3.4-5.0); ANION GAP 13.6 (5-15); BILIRUBIN TOTAL 0.6 mg/dL (0.2-1.0); BUN/CREATININE RATIO 15.5 (14-18); C-REACTIVE PROTEIN 9.16 mg/dL (<0.30); CALCIUM 8.4 mg/dL (8.5-10.1); CREATININE 1.1 mg/dL (0.7-1.3); EST CRCL DRUG DOSING (CG) 48.49 mL/min; POTASSIUM,K 3.6 mEq/L (3.5-5.1); PROTEIN TOTAL,TP 5.8 g/dl (6.4-8.2)
[2024-07-08 06:25] LABS: PLATELET COUNT,PLT 14 K/mm3 (150-400)
[2024-07-08] MEDS: SULFASALAZINE 500 MG PO SCH (06:59)
[2024-07-08 12:12] LABS: SLIDE REVIEW ABNORMAL SMEAR
[2024-07-08] MEDS: Magnesium Sulfate/Water Premix 2 GM in Premix Bag 1 BAG IV ONE (13:31)
[2024-07-08] MEDS: VANCOmycin 1.25 GM/250 ML 1.25 GM in Premix Bag 1 BAG IV SCH (17:32)
[2024-07-08] MEDS: Nitrofurantoin Monohydrate/Macrocrystalline 100 MG Cap PO ONE (20:38)
[2024-07-08] MEDS: MAGIC MOUTHWASH PO PRN (20:58)
[2024-07-09 04:46] LABS: EOSINOPHILS ABSOLUTE AUTO 0.2 K/mm3 (0.0-0.4); EOSINOPHILS PERCENT AUTO 4.5 % (0.0-6.0); HEMATOCRIT 33.1 % (42.0-52.0); HEMOGLOBIN 10.8 gm/dl (14.0-18.0); IMMATURE GRAN ABSOLUTE AUTO 0.01 K/mm3 (0.00-0.05); IMMATURE GRAN PERCENT AUTO 0.2 % (0.0-0.4); LYMPHOCYTES ABSOLUTE AUTO 2.9 K/mm3 (1.0-4.8); LYMPHOCYTES PERCENT AUTO 69.2 % (24.0-44.0); MEAN CORPUSCULAR HEMOGLOBIN 31.5 pg (28.0-32.0); MEAN CORPUSCULAR HGB CONC 32.6 g/dl (32.0-36.0); MEAN CORPUSCULAR VOLUME 96.5 fl (83.0-99.0); MONOCYTES PERCENT AUTO 0.7 % (0.0-8.0); NEUTROPHILS ABSOLUTE AUTO 1.1 K/mm3 (1.8-7.7); NEUTROPHILS PERCENT AUTO 25.4 % (41.0-71.0); RED BLOOD CELL COUNT 3.43 M/mm3 (4.52-5.90); WHITE BLOOD CELL COUNT,WBC 4.22 K/mm3 (3.9-11.3)
[2024-07-09 05:10] LABS: A/G RATIO 0.7 (1-2); ALBUMIN 2.3 g/dl (3.4-5.0); ANION GAP 12.6 (5-15); BILIRUBIN TOTAL 0.4 mg/dL (0.2-1.0); C-REACTIVE PROTEIN 5.51 mg/dL (<0.30); CALCIUM 8.2 mg/dL (8.5-10.1); EST CRCL DRUG DOSING (CG) 53.34 mL/min; MAGNESIUM 1.9 mg/dL (1.8-2.4); PHOSPHORUS 2.6 mg/dL (2.6-4.7); POTASSIUM,K 3.6 mEq/L (3.5-5.1); PROTEIN TOTAL,TP 5.6 g/dl (6.4-8.2)
[2024-07-09 05:36] LABS: PLATELET COUNT,PLT 11 K/mm3 (150-400)
[2024-07-09 06:17] LABS: SLIDE REVIEW ABNORMAL SMEAR
[2024-07-09] MEDS: Fluconazole 150 MG Tab PO ONE (08:43)
[2024-07-09] MEDS: Sodium Chloride 0.9% 250 ML IV SCH (13:53)
[2024-07-09] MEDS: Nitrofurantoin Monohydrate/Macrocrystalline 100 MG Cap PO SCH (21:01)
[2024-07-10 04:41] LABS: EOSINOPHILS ABSOLUTE AUTO 0.2 K/mm3 (0.0-0.4); HEMATOCRIT 31.1 % (42.0-52.0); HEMOGLOBIN 10.6 gm/dl (14.0-18.0); IMMATURE GRAN ABSOLUTE AUTO 0.01 K/mm3 (0.00-0.05); IMMATURE GRAN PERCENT AUTO 0.2 % (0.0-0.4); LYMPHOCYTES ABSOLUTE AUTO 2.1 K/mm3 (1.0-4.8); MEAN CORPUSCULAR HGB CONC 34.1 g/dl (32.0-36.0); MEAN CORPUSCULAR VOLUME 90.9 fl (83.0-99.0); MEAN PLATELET VOLUME 10.6 fl (9.4-12.4); MONOCYTES ABSOLUTE AUTO 0.3 K/mm3 (0.0-0.8); MONOCYTES PERCENT AUTO 7.5 % (0.0-8.0); NEUTROPHILS ABSOLUTE AUTO 1.4 K/mm3 (1.8-7.7); NEUTROPHILS PERCENT AUTO 34.3 % (41.0-71.0); PLATELET COUNT,PLT 50 K/mm3 (150-400); RED BLOOD CELL COUNT 3.42 M/mm3 (4.52-5.90); WHITE BLOOD CELL COUNT,WBC 4.02 K/mm3 (3.9-11.3)
[2024-07-10 05:21] LABS: A/G RATIO 0.7 (1-2); ALBUMIN 2.4 g/dl (3.4-5.0); ANION GAP 11.7 (5-15); BILIRUBIN TOTAL 0.5 mg/dL (0.2-1.0); C-REACTIVE PROTEIN 3.6 mg/dL (<0.30); CALCIUM 8.5 mg/dL (8.5-10.1); EST CRCL DRUG DOSING (CG) 53.34 mL/min; MAGNESIUM 1.7 mg/dL (1.8-2.4); POTASSIUM,K 3.7 mEq/L (3.5-5.1); PROTEIN TOTAL,TP 5.8 g/dl (6.4-8.2)
[2024-07-10 06:34] LABS: SLIDE REVIEW ABNORMAL SMEAR
[2024-07-10] MEDS: Magnesium Sulfate/Water Premix 2 GM in Premix Bag 1 BAG IV ONE (07:51)
[2024-07-10 22:42] LABS: CALPROTECTIN,FECAL 130 ug/g (<=49)
== END 2024-07-10 13:00 | disposition home or self-care (01) | DRG 699 ==
LOC: JD.ED 11:09 → JD.MS 17:42
PROVIDERS: ADMIT Family Medicine; ATTEND Internal Medicine
DX: T83.511A Infection and inflammatory reaction due to indwelling urethral catheter, initial encounter (principal); D61.818 Other pancytopenia; I13.0 Hypertensive heart and chronic kidney disease with heart failure and stage 1 through stage 4 chronic kidney disease, or unspecified chronic kidney disease; N17.9 Acute kidney failure, unspecified; R19.7 Diarrhea, unspecified; K59.00 Constipation, unspecified; Z16.29 Resistance to other single specified antibiotic; N39.0 Urinary tract infection, site not specified; N18.9 Chronic kidney disease, unspecified; Z66 Do not resuscitate; N31.9 Neuromuscular dysfunction of bladder, unspecified; Z79.2 Long term (current) use of antibiotics; I25.10 Atherosclerotic heart disease of native coronary artery without angina pectoris; K59.09 Other constipation; H91.90 Unspecified hearing loss, unspecified ear; H54.7 Unspecified visual loss; I50.9 Heart failure, unspecified; N40.0 Benign prostatic hyperplasia without lower urinary tract symptoms; F32.A Depression, unspecified; K62.89 Other specified diseases of anus and rectum; B02.9 Zoster without complications; E86.1 Hypovolemia; N18.31 Chronic kidney disease, stage 3a; M05.79 Rheumatoid arthritis with rheumatoid factor of multiple sites without organ or systems involvement; D69.6 Thrombocytopenia, unspecified; L74.0 Miliaria rubra; K13.79 Other lesions of oral mucosa; R33.9 Retention of urine, unspecified; Z79.899 Other long term (current) drug therapy; Z95.0 Presence of cardiac pacemaker; Z98.49 Cataract extraction status, unspecified eye; Z90.89 Acquired absence of other organs; Z95.5 Presence of coronary angioplasty implant and graft; Z79.82 Long term (current) use of aspirin
CPT/HCPCS: 36415; 71045; 74018; 74177; 80053; 83605; 83735; 85025; 86140; 87040; J7030; Q9967; 36430; 51702; 80202; 81001; 83615; 83630; 84100; 84484; 86900; 86901; 87086; 87088; 87186; 93005; 96360; 96361; 97110-GP; 97116-GP; 97161-GP; 99284; 99285-25; A9270-GY; J0696; J3372; J3475; J3490; J7050; P9034

== ENCOUNTER 2024-10-05 11:15 | Emergency (ER) | payer MEDICARE, OTHER ==
[2024-10-05 11:43] LABS: BASOPHILS PERCENT AUTO 0.2 % (0.0-1.0); EOSINOPHILS ABSOLUTE AUTO 0.2 K/mm3 (0.0-0.4); EOSINOPHILS PERCENT AUTO 1.1 % (0.0-6.0); HEMATOCRIT 43.5 % (42.0-52.0); IMMATURE GRAN ABSOLUTE AUTO 0.04 K/mm3 (0.00-0.05); IMMATURE GRAN PERCENT AUTO 0.3 % (0.0-0.4); LYMPHOCYTES ABSOLUTE AUTO 6.8 K/mm3 (1.0-4.8); LYMPHOCYTES PERCENT AUTO 43.9 % (24.0-44.0); MEAN CORPUSCULAR VOLUME 97.1 fl (83.0-99.0); MEAN PLATELET VOLUME 8.9 fl (9.4-12.4); MONOCYTES ABSOLUTE AUTO 0.6 K/mm3 (0.0-0.8); NEUTROPHILS ABSOLUTE AUTO 7.8 K/mm3 (1.8-7.7); NEUTROPHILS PERCENT AUTO 50.5 % (41.0-71.0); RED BLOOD CELL COUNT 4.48 M/mm3 (4.52-5.90); WHITE BLOOD CELL COUNT,WBC 15.46 K/mm3 (3.9-11.3)
[2024-10-05 11:55] LABS: HEMOGLOBIN 13.9 gm/dl (14.0-18.0)
[2024-10-05 11:56] LABS: PLATELET COUNT,PLT 100 K/mm3 (150-400)
[2024-10-05 12:03] LABS: A/G RATIO 0.9 (1-2); ALBUMIN 3.2 g/dl (3.4-5.0); ALKALINE PHOSPHATASE 68 U/L (46-116); ANION GAP 12.8 (5-15); ASPARTATE AMNIOTRANSFERASE,AST 12 U/L (15-37); BILIRUBIN TOTAL 0.7 mg/dL (0.2-1.0); BLOOD UREA NITROGEN,BUN 17 mg/dL (7-18); BUN/CREATININE RATIO 13.1 (14-18); CALCIUM 8.8 mg/dL (8.5-10.1); CARBON DIOXIDE,CO2 27 mEq/L (21-32); CHLORIDE,CL 104 mEq/L (98-107); CREATININE 1.3 mg/dL (0.7-1.3); ESTIMATED GFR 53 mL/min (>60); GLUCOSE RANDOM 104 mg/dL (70-99); POTASSIUM,K 3.8 mEq/L (3.5-5.1); PROTEIN TOTAL,TP 6.9 g/dl (6.4-8.2); SODIUM,NA 140 mEq/L (136-145)
[2024-10-05 12:15] LABS: ALANINE AMINOTRANSFERASE,ALT 10 U/L (16-63)
[2024-10-05 12:35] LABS: SLIDE REVIEW ABNORMAL SMEAR
[2024-10-05 13:05] LABS: APPEARANCE,URINE CLOUDY (Clear); BILIRUBIN,URINE NEGATIVE (Negative); COLOR,URINE YELLOW (Yellow); GLUCOSE,URINE NEGATIVE (Negative); KETONES,URINE NEGATIVE (Negative); LEUKOCYTE ESTERASE,URINE 2+ (Negative); NITRITE,URINE POSITIVE (Negative); OCCULT BLOOD,URINE 3+ (Negative); PROTEIN,URINE 2+ (Negative); UROBILINOGEN,URINE 0.2 (0.2-1.0)
[2024-10-05 13:30] LABS: BACTERIA,URINE MODERATE /hpf (FEW); EPITHELIAL CELLS,URINE 0-5 /hpf (0-5); WBC CLUMPS,URINE MODERATE /hpf (NOT SEEN); WBC,URINE 40-50 /hpf (0-5)
[2024-10-05 13:31] LABS: MUCUS,URINE FEW /hpf (FEW)
== END 2024-10-05 14:20 | disposition home or self-care (01) ==
LOC: JD.ED 11:15
DX: S01.01XA Laceration without foreign body of scalp, initial encounter (principal); N39.0 Urinary tract infection, site not specified; I13.0 Hypertensive heart and chronic kidney disease with heart failure and stage 1 through stage 4 chronic kidney disease, or unspecified chronic kidney disease; N18.9 Chronic kidney disease, unspecified; I50.9 Heart failure, unspecified; Z95.0 Presence of cardiac pacemaker; Z79.899 Other long term (current) drug therapy; W01.198A Fall on same level from slipping, tripping and stumbling with subsequent striking against other object, initial encounter; Y93.89 Activity, other specified
CPT/HCPCS: 12002; 36415; 70450; 70450-26; 72125; 72125-26; 80053; 81001; 85025; 87086; 87088; 87186; 99284; 99284-25